=== PATIENT | female | born 1960 | race Caucasian/White ===

== ENCOUNTER 2021-04-11 08:19 | Outpatient (CLI) | payer BC ==
[2021-04-11 21:45] LABS: SARS-CoV-2 PCR by NAA Not Detected (NotDetected)
== END 2021-04-11 08:20 | disposition home or self-care (01) ==
LOC: CSHLAB 08:19
PROVIDERS: ATTEND Internal Medicine Gastroenterology
DX: Z20.822 Contact with and (suspected) exposure to COVID-19 (principal); R10.13 Epigastric pain; Z12.11 Encounter for screening for malignant neoplasm of colon
CPT/HCPCS: U0003; U0005

== ENCOUNTER 2021-04-14 06:33 | Day surgery (SDC) | payer BC ==
[2021-04-14] MEDS ORDERED: Lidocaine 1% MPF 2 ML VIAL ONE (06:39)
[2021-04-14] MEDS ORDERED: PROPOFOL 40 ML ONE (07:28)
[2021-04-14] MEDS ORDERED: Fentanyl 100 MCG/2 ML VIAL ONE (07:28)
[2021-04-14] MEDS ORDERED: Lidocaine 1% PF 5 ML VIAL ONE (07:28)
[2021-04-14] MEDS ORDERED: PROPOFOL 20 ML ONE (08:51)
[2021-04-14] MEDS ORDERED: PHENYLEPHRINE-NS 100 MCG/ML 10 ML SYRINGE ONE (08:54)
== END 2021-04-14 10:22 | disposition home or self-care (01) ==
LOC: CSHSDC 06:33
PROVIDERS: ATTEND Internal Medicine Gastroenterology
PROC: 0DB68ZZ Excision of Stomach, Via Natural or Artificial Opening Endoscopic (ICD-10-PCS; principal; 2021-04-14)
PROC: 0DJD8ZZ Inspection of Lower Intestinal Tract, Via Natural or Artificial Opening Endoscopic (ICD-10-PCS; principal; 2021-04-14)
DX: Z12.11 Encounter for screening for malignant neoplasm of colon (principal); K30 Functional dyspepsia; Q43.8 Other specified congenital malformations of intestine; K62.89 Other specified diseases of anus and rectum; G47.00 Insomnia, unspecified; Z87.891 Personal history of nicotine dependence; F41.9 Anxiety disorder, unspecified
CPT/HCPCS: 88305; J2704; J3010